=== PATIENT | female | born 1940 | race Caucasian/White ===

== ENCOUNTER 2016-10-17 15:22 | Emergency (ER) | payer OTHER ==
[~2016-10-17] VITALS: Ht 160 cm; Wt 75.0 kg
[~2016-10-17 15:22] MED LIST: ACCUPRIL40 MG PO; ADULT LOW DOSE81 M1 PO; ALDACTONE25 MG PO; ASPIRIN81 M2 PO; BACTRIM,SEPT1 TABLET PO; BUMETANIDE1 MG PO; BUMETANIDE2 MG PO; CARVEDILOL3.125 MG PO; CIPRO500 MG PO; CLINDAMYCIN HC300 MG PO; CRESTOR40 MG PO; DEXILANT60 MG PO; DIGITEK250 MC2 PO; DIGOXIN125 MCG PO; DIGOXIN250 MCG PO; DURAGESIC50 MCG TD; ELIQUIS5 MG PO; ENTRESTO 24 MG1 EACH PO; ENTRESTO 49 MG1 EACH PO; FERROUS SULFAT325 MG PO; FISH OIL CONC1 EACH PO; FOSINOPRIL SODI10 MG PO; FUROSEMIDE40 MG PO; GABAPENTIN100 MG PO; GLUCOPHAGE500 MG PO; Glucophage PO; HUMALOG100 UNIT/1 SC; HUMULIN 70100 UNIT/2 SC; K-DUR10 MEQ PO; K-DUR20 MEQ PO; K-TAB10 MEQ PO; LANTUS 10100 UNITS/ SC; LANTUS 3 M100 UNITS1 SC; LASIX40 MG PO; LISINOPRIL2.5 MG PO; LISINOPRIL5 MG PO; LO-DOSE ASPIRIN81 M1 PO; LOPRESSOR100 M1 PO; METFORMIN HCL500 MG PO; METOPROLOL SUCC50 MG PO; METOPROLOL TAR100 MG PO; MICRO-K10 ME2 PO; NOVOLIN,HU100 UNITS/ SC; NOVOLOG 10100 UNITS/ SC; NovoLOG, HumaLOG SC; POTASSIUM CHLORIDE PO; POTASSIUM CITR10 MEQ PO; PRADAXA150 MG PO; PRAVASTATIN SOD10 MG PO; PROAIR HFA8.5 GM IH; PROMETHAZINE12.5 M1 PO; PROTONIX40 MG PO; PROVENTIL,2.5 MG/3 M IH; PT UNSURE OF MEDS; Pradaxa PO; QUINAPRIL HCL40 MG PO; RANITIDINE HCL150 MG PO; SANTYL30 GM TP; SPIRONOLACTONE25 MG PO; SUCRALFATE1 GM/10 ML PO; TRAMADOL HCL50 MG PO; Vicodin,Lortab 5/500 PO; XANAX; XANAX0.25 MG PO; XANAX0.5 MG PO; ZANTAC150 MG PO; ZETIA10 MG PO; ZITHROMAX Z-PA250 MG PO; ZOFRAN4 MG PO; ZOLPIDEM TARTRAT5 MG PO
[2016-10-17 16:50] VITALS: BP 116/58
== END 2016-10-17 17:05 | disposition home or self-care (01) ==
LOC: EME 15:22
DX: S63.502A Unspecified sprain of left wrist, initial encounter (principal); M81.0 Age-related osteoporosis without current pathological fracture; Z91.040 Latex allergy status; Z88.6 Allergy status to analgesic agent; Z88.0 Allergy status to penicillin
CPT/HCPCS: 73110; 99281; 99283

== ENCOUNTER 2017-07-23 16:28 | Emergency (ER) | payer OTHER | END 2017-07-23 17:43 | disposition left against medical advice (07) | LOC: EME 16:28 | DX: R53.1 Weakness (principal); R11.0 Nausea; Z53.21 Procedure and treatment not carried out due to patient leaving prior to being seen by health care provider ==

== ENCOUNTER 2017-07-28 15:52 | Inpatient (IN) | payer OTHER ==
[~2017-07-28] VITALS: Ht 160 cm; Wt 84.1 kg
[2017-07-28 17:59] LABS: HEMATOCRIT 39.4 % (36.0-46.0); HEMOGLOBIN 12.4 G/DL (11.9-15.5); MCH 27.3 PG (29.0-34.0); MCHC 31.5 G/DL (30.0-36.0); MCV 86.6 FL (83-99); PLATELET COUNT 253 K/uL (156-360); RBC DIS.WIDTH-CV 18.2 % (11.8-14.6); RBC DIS.WIDTH-SD 56.7 % (39-53); RED BLOOD COUNT 4.55 M/uL (3.80-5.20); WHITE BLOOD COUNT 9.2 K/uL (4.1-10.2)
[2017-07-28 18:13] LABS: CHLORIDE 105 mEq/L (99-109); POTASSIUM 5.4 mEq/L (3.7-5.4); SODIUM 135 mEq/L (136-147)
[2017-07-28 18:15] LABS: GLUCOSE 200 mg/dL (70-99)
[2017-07-28 18:19] LABS: CREATININE 1.7 mg/dL (0.6-1.3); GFR ESTIMATE (CALCULATED) 31 mL/min/
[2017-07-28 18:20] LABS: UREA NITROGEN (BUN) 31 mg/dL (9-23)
[2017-07-28 18:41] LABS: APPEARANCE CLEAR ((CLEAR)); BILIRUBIN NEGATIVE; BLOOD NEGATIVE; COLOR YELLOW ((YELLOW)); GLUCOSE (STRIP) >=500; KETONES NEGATIVE; LEUKOCYTES SMALL; NITRITE NEGATIVE; PROTEIN (STRIP) 30; UROBILINOGEN 0.2 MG/DL (0.2-1.0)
[2017-07-28 18:53] LABS: BACTERIA RARE /HPF; EPITHELIAL CELLS RARE /HPF; HYALINE CASTS 0-5 /LPF; MUCUS NONE SEEN /LPF; UCUL ADDED? YES; WHITE BLOOD CELLS 15-20 /HPF (0-5)
[2017-07-28 19:06] LABS: TROP-I INTERPRETATION NEGATIVE; TROPONIN-I 0.06 ng/mL (0.0-0.30)
[2017-07-28] MEDS ORDERED: DIGOX125 MCG PO (19:53)
[2017-07-28] MEDS ORDERED: KLOR-CON M2020 MEQ PO (19:54)
[2017-07-28] MEDS ORDERED: BUMETANIDE2 MG PO (19:54)
[2017-07-28] MEDS ORDERED: JARDIANCE25 MG PO (19:56)
[2017-07-28] MEDS ORDERED: WOMEN'S 50 PLU1 EACH PO (19:56)
[2017-07-28] MEDS ORDERED: ATORVASTATIN CA40 MG PO (19:56)
[2017-07-28] MEDS ORDERED: PROMETHAZINE12.5 M1 PO (19:56)
[2017-07-28 23:36] LABS: TROP-I INTERPRETATION NEGATIVE; TROPONIN-I 0.06 ng/mL (0.0-0.30)
[2017-07-29] VITALS (7 sets, daily range): BP systolic 96–126; BP diastolic 56–74
[2017-07-29 06:54] LABS: HEMATOCRIT 40.9 % (36.0-46.0); HEMOGLOBIN 12.3 G/DL (11.9-15.5); MCH 26.6 PG (29.0-34.0); MCHC 30.1 G/DL (30.0-36.0); MCV 88.5 FL (83-99); PLATELET COUNT 222 K/uL (156-360); RBC DIS.WIDTH-CV 18.6 % (11.8-14.6); RBC DIS.WIDTH-SD 58.4 % (39-53); RED BLOOD COUNT 4.62 M/uL (3.80-5.20); WHITE BLOOD COUNT 8.8 K/uL (4.1-10.2)
[2017-07-29 07:06] LABS: TROP-I INTERPRETATION NEGATIVE; TROPONIN-I 0.07 ng/mL (0.0-0.30)
[2017-07-29 07:34] LABS: ALBUMIN 3.6 G/DL (3.2-4.8); ALKALINE PHOSPHATASE 149 IU/L (3-129); ALT (GPT) 14 IU/L (3-49); AST (GOT) 21 IU/L (2-34); CHLORIDE 104 MEQ/L (99-109); CREATININE 1.6 MG/DL (0.6-1.3); GFR ESTIMATE (CALCULATED) 33 mL/min/; GLUCOSE 78 mg/dL (70-99); POTASSIUM 4.9 MEQ/L (3.7-5.4); SODIUM 138 MEQ/L (136-147); TOTAL PROTEIN 5.9 G/DL (6.4-8.3); UREA NITROGEN (BUN) 30 mg/dL (9-23)
[2017-07-29 09:18] LABS: TROP-I INTERPRETATION NEGATIVE; TROPONIN-I 0.06 ng/mL (0.0-0.30)
[2017-07-29 13:20] LABS: HEMOGLOBIN A1c (GLYCOHEMOGLOB) 7.8 % (Below 5.7)
[2017-07-30 04:06] VITALS: BP 116/74
[2017-07-30 07:24] VITALS: BP 104/75
[2017-07-30 11:10] VITALS: BP 129/66
== END 2017-07-30 13:15 | disposition home health service (06) | DRG 292 ==
LOC: EME 15:52 → 5SOUTH 20:20 → EDOF 20:20 → ENRESERV 20:22 → 5SOUTH 22:26
PROVIDERS: Hospitalist; Internal Medicine; Physician Assistant
DX: I11.0 Hypertensive heart disease with heart failure (principal); I50.23 Acute on chronic systolic (congestive) heart failure; E87.1 Hypo-osmolality and hyponatremia; N17.9 Acute kidney failure, unspecified; J90 Pleural effusion, not elsewhere classified; E11.9 Type 2 diabetes mellitus without complications; E78.00 Pure hypercholesterolemia, unspecified; E78.5 Hyperlipidemia, unspecified; I25.10 Atherosclerotic heart disease of native coronary artery without angina pectoris; I48.2 Chronic atrial fibrillation; I25.5 Ischemic cardiomyopathy; K21.9 Gastro-esophageal reflux disease without esophagitis; J43.9 Emphysema, unspecified; I34.0 Nonrheumatic mitral (valve) insufficiency; I27.20 Pulmonary hypertension, unspecified; Z66 Do not resuscitate; I42.9 Cardiomyopathy, unspecified; E66.9 Obesity, unspecified; Z95.810 Presence of automatic (implantable) cardiac defibrillator; Z79.01 Long term (current) use of anticoagulants; Z79.4 Long term (current) use of insulin; Z95.1 Presence of aortocoronary bypass graft; Z82.49 Family history of ischemic heart disease and other diseases of the circulatory system; Z87.891 Personal history of nicotine dependence; I25.2 Old myocardial infarction; Z88.0 Allergy status to penicillin; Z88.5 Allergy status to narcotic agent; Z91.040 Latex allergy status; Z68.32 Body mass index [BMI] 32.0-32.9, adult
CPT/HCPCS: 71045; 71046; 80048; 80053; 81003; 82948; 83036; 83880; 84484; 85027; 87086; 93005; 93306; 99202; 99281; 99284; J1815; J1940

== ENCOUNTER 2017-08-01 15:01 | Inpatient (IN) | payer OTHER ==
[~2017-08-01] VITALS: Ht 160 cm; Wt 83.0 kg
[~2017-08-01 15:01] MED LIST changes: +ATORVASTATIN CA40 MG PO; +DIGOX125 MCG PO; +JARDIANCE25 MG PO; +KLOR-CON M2020 MEQ PO; +WOMEN'S 50 PLU1 EACH PO
[2017-08-01 15:53] LABS: HEMATOCRIT 39.1 % (36.0-46.0); HEMOGLOBIN 12.3 G/DL (11.9-15.5); MCH 27.3 PG (29.0-34.0); MCHC 31.5 G/DL (30.0-36.0); MCV 86.9 FL (83-99); PLATELET COUNT 240 K/uL (156-360); RBC DIS.WIDTH-CV 18.2 % (11.8-14.6); RBC DIS.WIDTH-SD 56.6 % (39-53); WHITE BLOOD COUNT 6.1 K/uL (4.1-10.2)
[2017-08-01 16:00] LABS: INTER. NORMALIZED RATIO 2.9
[2017-08-01 16:02] LABS: ALBUMIN 3.7 g/dL (3.2-4.8); CHLORIDE 99 mEq/L (99-109)
[2017-08-01 16:03] LABS: SODIUM 131 mEq/L (136-147)
[2017-08-01 16:04] LABS: GLUCOSE 263 mg/dL (70-99); TOTAL PROTEIN 6.2 g/dL (6.4-8.3)
[2017-08-01 16:06] LABS: TOTAL BILIRUBIN 1.4 mg/dL (0.0-1.0)
[2017-08-01 16:08] LABS: ALKALINE PHOSPHATASE 159 IU/L (3-129); GFR ESTIMATE (CALCULATED) 19 mL/min/
[2017-08-01 16:09] LABS: AST (GOT) 35 IU/L (2-34); UREA NITROGEN (BUN) 44 mg/dL (9-23)
[2017-08-01 16:11] LABS: ALT (GPT) 19 IU/L (3-49)
[2017-08-01 16:14] LABS: CREATININE 2.6 mg/dL (0.6-1.3); POTASSIUM 6.7 mEq/L (3.7-5.4)
[2017-08-01] MEDS ORDERED: TYLENOL EXTRA500 MG PO (17:15)
[2017-08-01] MEDS ORDERED: ROBITUSSIN DM118 ML PO (17:16)
[2017-08-01 20:30] LABS: DIGOXIN 2.2 ng/mL (0.8-2.0)
[2017-08-01 22:03] LABS: HEMATOCRIT 37.8 % (36.0-46.0); MCV 85.9 FL (83-99)
[2017-08-01 22:13] LABS: CHLORIDE 105 mEq/L (99-109); POTASSIUM 5.8 mEq/L (3.7-5.4); SODIUM 137 mEq/L (136-147)
[2017-08-01 22:19] LABS: CREATININE 2.4 mg/dL (0.6-1.3); GFR ESTIMATE (CALCULATED) 21 mL/min/
[2017-08-01 22:20] VITALS: BP 88/54
[2017-08-01 22:20] LABS: UREA NITROGEN (BUN) 47 mg/dL (9-23)
[2017-08-01 22:26] VITALS: BP 91/65
[2017-08-01 22:27] LABS: GLUCOSE 91 mg/dL (70-99)
[2017-08-02 00:25] VITALS: BP 110/65
[2017-08-02 03:05] LABS: HEMOGLOBIN 12.3 G/DL (11.9-15.5); MCV 86.1 FL (83-99)
[2017-08-02 04:00] VITALS: BP 110/62
[2017-08-02 08:09] VITALS: BP 111/56
[2017-08-02 09:07] LABS: HEMATOCRIT 39.9 % (36.0-46.0); HEMOGLOBIN 12.5 G/DL (11.9-15.5); MCH 27.4 PG (29.0-34.0); MCHC 31.3 G/DL (30.0-36.0); MCV 87.5 FL (83-99); PLATELET COUNT 264 K/uL (156-360); RBC DIS.WIDTH-CV 18.6 % (11.8-14.6); RED BLOOD COUNT 4.56 M/uL (3.80-5.20); WHITE BLOOD COUNT 6.9 K/uL (4.1-10.2)
[2017-08-02 09:50] LABS: DIGOXIN 1.5 ng/mL (0.8-2.0)
[2017-08-02 10:44] LABS: CHLORIDE 104 MEQ/L (99-109); CREATININE 2.3 MG/DL (0.6-1.3); GFR ESTIMATE (CALCULATED) 22 mL/min/; GLUCOSE 94 mg/dL (70-99); POTASSIUM 5.6 MEQ/L (3.7-5.4); SODIUM 138 MEQ/L (136-147); UREA NITROGEN (BUN) 41 mg/dL (9-23)
[2017-08-02 12:01] VITALS: BP 116/60
[2017-08-02 15:33] LABS: HEMATOCRIT 40.1 % (36.0-46.0); HEMOGLOBIN 12.1 G/DL (11.9-15.5)
[2017-08-02 15:38] LABS: C DIFF TOXIN NEGATIVE (NEGATIVE)
[2017-08-02 16:19] VITALS: BP 109/73
[2017-08-02 19:56] VITALS: BP 106/57
[2017-08-03] VITALS (7 sets, daily range): BP systolic 96–137; BP diastolic 58–84
[2017-08-03 06:28] LABS: HEMATOCRIT 40.4 % (36.0-46.0); HEMOGLOBIN 12.3 G/DL (11.9-15.5); MCHC 30.4 G/DL (30.0-36.0); MCV 88.6 FL (83-99); PLATELET COUNT 245 K/uL (156-360); RBC DIS.WIDTH-CV 18.6 % (11.8-14.6); RBC DIS.WIDTH-SD 58.7 % (39-53); RED BLOOD COUNT 4.56 M/uL (3.80-5.20); WHITE BLOOD COUNT 6.2 K/uL (4.1-10.2)
[2017-08-03 06:54] LABS: CHLORIDE 101 MEQ/L (99-109); CREATININE 2.2 MG/DL (0.6-1.3); GFR ESTIMATE (CALCULATED) 23 mL/min/; GLUCOSE 88 mg/dL (70-99); POTASSIUM 4.7 MEQ/L (3.7-5.4); SODIUM 138 MEQ/L (136-147); UREA NITROGEN (BUN) 41 mg/dL (9-23)
[2017-08-03 07:14] LABS: INTER. NORMALIZED RATIO 1.5
[2017-08-04 04:14] VITALS: BP 135/82
[2017-08-04 06:55] LABS: BASOPHIL (%) 0.7 % (0-1); BASOPHIL COUNT 0.1 K/uL (0-0.1); EOSINOPHIL (%) 0.9 % (0-5); EOSINOPHIL COUNT 0.1 K/uL (0-0.3); HEMATOCRIT 39.6 % (36.0-46.0); HEMOGLOBIN 12.3 G/DL (11.9-15.5); IMMATURE GRANULOCYTE (%) 0.3 % (0.0-0.7); LYMPHOCYTE (%) 22.7 % (15-42); LYMPHOCYTE COUNT 1.5 K/uL (1.0-2.8); MCH 27.1 PG (29.0-34.0); MCHC 31.1 G/DL (30.0-36.0); MCV 87.2 FL (83-99); MONOCYTE (%) 10.1 % (3-12); MONOCYTE COUNT 0.7 K/uL (0-0.8); NEUTROPHIL (%) 65.3 % (45-76); NEUTROPHIL COUNT 4.4 K/uL (1.8-6.4); PLATELET COUNT 254 K/uL (156-360); RBC DIS.WIDTH-CV 18.6 % (11.8-14.6); RBC DIS.WIDTH-SD 57.6 % (39-53); RED BLOOD COUNT 4.54 M/uL (3.80-5.20); WHITE BLOOD COUNT 6.7 K/uL (4.1-10.2)
[2017-08-04 07:57] VITALS: BP 117/74
[2017-08-04 09:53] LABS: A/G RATIO 1.6 (1.1-1.8); ALBUMIN 3.5 G/DL (3.4-5.0); CHLORIDE 101 MEQ/L (99-109); CREATININE 2.2 MG/DL (0.6-1.3); FERRITIN 70 NG/ML (10-291); GFR ESTIMATE (CALCULATED) 23 mL/min/; GLOBULINS 2.2 G/DL (2.3-3.5); IRON 48 MCG/DL (35-150); POTASSIUM 4.8 MEQ/L (3.7-5.4); SODIUM 134 MEQ/L (136-147); TOTAL PROTEIN 5.7 G/DL (6.4-8.2); TRANSFERRIN (TIBC) 224.2 mg/dL (215-380); TRANSFERRIN SATUR. 21 % (20-55); UREA NITROGEN (BUN) 43 mg/dL (9-23)
[2017-08-04 09:55] LABS: GLUCOSE 185 mg/dL (70-99)
[2017-08-04 10:19] LABS: ANTI-HEPATITIS B CORE (TOTAL) Nonreactive
[2017-08-04 10:20] LABS: HEPATITIS C ANTIBODY Nonreactive
[2017-08-04 11:12] LABS: ALBUMIN 3.26 G/DL (3.6-4.9); ALPHA-1 GLOBULIN 0.33 G/DL (0.15-0.40); ALPHA-2 GLOBULIN 0.62 G/DL (0.45-0.85); BETA-GLOBULIN 0.56 G/DL (0.65-1.15); GAMMA-GLOBULIN 0.93 G/DL (0.60-1.35)
[2017-08-04 11:49] VITALS: BP 110/54
[2017-08-04] MEDS ORDERED: BUMEX1 MG PO (13:47)
[2017-08-04] MEDS ORDERED: METRONIDAZOLE500 MG PO ×2 (13:47→13:54)
== END 2017-08-04 15:30 | disposition home health service (06) | DRG 377 ==
LOC: EME 15:01 → EDOF 18:49 → 5SOUTH 18:49 → ENRESERV 19:01 → 5SOUTH 21:30 → ENPENDDIS 08-04 14:09 → 5SOUTH 08-04 15:30
PROVIDERS: Emergency Medicine; Hospitalist; Internal Medicine; Internal Medicine Nephrology; Specialist
DX: K92.1 Melena (principal); R19.7 Diarrhea, unspecified; N17.9 Acute kidney failure, unspecified; T50.2X5A Adverse effect of carbonic-anhydrase inhibitors, benzothiadiazides and other diuretics, initial encounter; T38.3X5A Adverse effect of insulin and oral hypoglycemic [antidiabetic] drugs, initial encounter; E87.5 Hyperkalemia; I95.9 Hypotension, unspecified; E87.1 Hypo-osmolality and hyponatremia; I13.0 Hypertensive heart and chronic kidney disease with heart failure and stage 1 through stage 4 chronic kidney disease, or unspecified chronic kidney disease; I50.43 Acute on chronic combined systolic (congestive) and diastolic (congestive) heart failure; E11.22 Type 2 diabetes mellitus with diabetic chronic kidney disease; N18.3 Chronic kidney disease, stage 3 (moderate); E78.5 Hyperlipidemia, unspecified; I25.10 Atherosclerotic heart disease of native coronary artery without angina pectoris; I25.5 Ischemic cardiomyopathy; I34.0 Nonrheumatic mitral (valve) insufficiency; I48.2 Chronic atrial fibrillation; K21.9 Gastro-esophageal reflux disease without esophagitis; J44.9 Chronic obstructive pulmonary disease, unspecified; E66.01 Morbid (severe) obesity due to excess calories; N83.202 Unspecified ovarian cyst, left side; I72.8 Aneurysm of other specified arteries; Z66 Do not resuscitate; Z68.32 Body mass index [BMI] 32.0-32.9, adult; Z87.891 Personal history of nicotine dependence; Z95.1 Presence of aortocoronary bypass graft; Z95.810 Presence of automatic (implantable) cardiac defibrillator; Z79.4 Long term (current) use of insulin; Z79.01 Long term (current) use of anticoagulants; Z88.0 Allergy status to penicillin; Z88.5 Allergy status to narcotic agent; Z91.040 Latex allergy status
CPT/HCPCS: 70450; 74176; 80048; 80048 91; 80053; 80162; 82390; 82728; 82948; 83540; 84132 91; 84165; 84466; 85014; 85018; 85025; 85027; 85610; 85730; 86704; 86708 90; 86803; 86850; 86900; 86901; 87177; 87493; 87506; 93005; 99202; 99281; 99285; C9113; J1815; J7030; J7040

== ENCOUNTER 2017-08-07 15:13 | Inpatient (IN) | payer OTHER ==
[~2017-08-07] VITALS: Ht 160 cm; Wt 88.9 kg
[~2017-08-07 15:13] MED LIST changes: +BUMEX1 MG PO; +METRONIDAZOLE500 MG PO; +ROBITUSSIN DM118 ML PO; +TYLENOL EXTRA500 MG PO
[2017-08-07 15:54] LABS: HEMATOCRIT 43.1 % (36.0-46.0); HEMOGLOBIN 13.5 G/DL (11.9-15.5); MCH 27.2 PG (29.0-34.0); MCHC 31.3 G/DL (30.0-36.0); MCV 86.7 FL (83-99); RBC DIS.WIDTH-SD 57.6 % (39-53); RED BLOOD COUNT 4.97 M/uL (3.80-5.20)
[2017-08-07 15:58] LABS: POTASSIUM ND MEQ/L (3.7-5.4)
[2017-08-07 16:03] LABS: CHLORIDE 99 MEQ/L (99-109); SODIUM 129 MEQ/L (136-147)
[2017-08-07 16:04] LABS: GLUCOSE 166 mg/dL (70-99)
[2017-08-07 16:05] LABS: TOTAL PROTEIN 7.4 g/dL (6.4-8.3)
[2017-08-07 16:08] LABS: CREATININE 2.4 mg/dL (0.6-1.3); GFR ESTIMATE (CALCULATED) 21 mL/min/
[2017-08-07 16:09] LABS: ALKALINE PHOSPHATASE 243 IU/L (3-129); TOTAL BILIRUBIN 1.1 mg/dL (0.0-1.0); UREA NITROGEN (BUN) 59 mg/dL (9-23)
[2017-08-07 16:12] LABS: ALT (GPT) ND IU/L (3-49); AST (GOT) ND IU/L (2-34)
[2017-08-07 16:16] LABS: TROP-I INTERPRETATION POSITIVE
[2017-08-07 16:17] LABS: TROPONIN-I 0.75 ng/mL (0.0-0.30)
[2017-08-07 16:38] LABS: POTASSIUM 5.7 mEq/L (3.7-5.4)
[2017-08-07 16:47] LABS: ALT (GPT) 54 IU/L (3-49); AST (GOT) 102 IU/L (2-34)
[2017-08-07 16:56] LABS: PLAT.SUFFICIENCY ADEQUATE; PLATELET COUNT 204 K/uL (156-360)
[2017-08-07] MEDS ORDERED: BUMEX2 MG PO (17:32)
[2017-08-07 20:51] LABS: TROP-I INTERPRETATION POSITIVE
[2017-08-07 20:53] LABS: TROPONIN-I 0.72 ng/mL (0.0-0.30)
[2017-08-07 20:57] VITALS: BP 118/73
[2017-08-07 23:18] VITALS: BP 150/80
[2017-08-08 02:29] LABS: TROP-I INTERPRETATION POSITIVE
[2017-08-08 03:38] VITALS: BP 101/58
[2017-08-08 09:05] VITALS: BP 127/67
[2017-08-08 09:32] LABS: HEMATOCRIT 40.4 % (36.0-46.0); HEMOGLOBIN 12.6 G/DL (11.9-15.5); MCH 27.3 PG (29.0-34.0); MCHC 31.2 G/DL (30.0-36.0); MCV 87.4 FL (83-99); PLATELET COUNT 183 K/uL (156-360); RBC DIS.WIDTH-CV 18.6 % (11.8-14.6); RBC DIS.WIDTH-SD 58.4 % (39-53); RED BLOOD COUNT 4.62 M/uL (3.80-5.20); WHITE BLOOD COUNT 5.1 K/uL (4.1-10.2)
[2017-08-08 10:01] LABS: CHLORIDE 99 MEQ/L (99-109); CREATININE 2.2 MG/DL (0.6-1.3); GFR ESTIMATE (CALCULATED) 23 mL/min/; GLUCOSE 124 mg/dL (70-99); POTASSIUM 5.4 MEQ/L (3.7-5.4); SODIUM 131 MEQ/L (136-147); UREA NITROGEN (BUN) 59 mg/dL (9-23)
[2017-08-08 10:16] LABS: TROP-I INTERPRETATION POSITIVE; TROPONIN-I 0.99 ng/mL (0.0-0.30)
[2017-08-08 11:50] VITALS: BP 149/88
[2017-08-08 15:58] VITALS: BP 100/59
[2017-08-08 18:23] LABS: HEMATOCRIT 43.2 % (36.0-46.0); HEMOGLOBIN 13.4 G/DL (11.9-15.5); MCV 87.4 FL (83-99)
[2017-08-08 19:31] VITALS: BP 106/58
[2017-08-08 22:40] VITALS: BP 106/58
[2017-08-09 04:14] VITALS: BP 111/65
[2017-08-09 05:44] LABS: BASOPHIL (%) 0.7 % (0-1); EOSINOPHIL (%) 0.2 % (0-5); HEMATOCRIT 39.6 % (36.0-46.0); HEMOGLOBIN 12.1 G/DL (11.9-15.5); IMMATURE GRANULOCYTE (%) 0.7 % (0.0-0.7); LYMPHOCYTE (%) 18.8 % (15-42); LYMPHOCYTE COUNT 0.9 K/uL (1.0-2.8); MCH 26.8 PG (29.0-34.0); MCHC 30.6 G/DL (30.0-36.0); MCV 87.8 FL (83-99); MONOCYTE (%) 19.9 % (3-12); MONOCYTE COUNT 0.9 K/uL (0-0.8); NEUTROPHIL (%) 59.7 % (45-76); NEUTROPHIL COUNT 2.7 K/uL (1.8-6.4); PLATELET COUNT 178 K/uL (156-360); RBC DIS.WIDTH-CV 18.6 % (11.8-14.6); RBC DIS.WIDTH-SD 58.7 % (39-53); RED BLOOD COUNT 4.51 M/uL (3.80-5.20); WHITE BLOOD COUNT 4.5 K/uL (4.1-10.2)
[2017-08-09 06:09] LABS: CHLORIDE 100 MEQ/L (99-109); CREATININE 2.2 MG/DL (0.6-1.3); GFR ESTIMATE (CALCULATED) 23 mL/min/; POTASSIUM 5.4 MEQ/L (3.7-5.4); SODIUM 131 MEQ/L (136-147); UREA NITROGEN (BUN) 61 mg/dL (9-23)
[2017-08-09 06:12] LABS: GLUCOSE 52 mg/dL (70-99); TROP-I INTERPRETATION POSITIVE; TROPONIN-I 3.42 ng/mL (0.0-0.30)
[2017-08-09 07:00] VITALS: BP 88/55
[2017-08-09 09:53] LABS: STOOL OCCULT BLD 1ST SPECIMEN POSITIVE
[2017-08-09 12:00] VITALS: BP 114/59
[2017-08-09 20:04] VITALS: BP 112/63
[2017-08-10 08:36] VITALS: BP 120/68
== END 2017-08-10 18:25 ==
LOC: EME 15:13 → EDOF 17:20 → 4EAST 17:20 → ENRESERV 17:22 → 4EAST 20:48 → ENRESERV 08-09 11:48 → EDOF 08-09 19:50 → 5EAST 08-09 19:50 → ENRESERV 08-09 20:09 → 5EAST 08-09 21:07
PROVIDERS: Emergency Medicine; Hospitalist; Internal Medicine Cardiovascular Disease; Internal Medicine Nephrology
DX: I13.0 Hypertensive heart and chronic kidney disease with heart failure and stage 1 through stage 4 chronic kidney disease, or unspecified chronic kidney disease (principal); I50.23 Acute on chronic systolic (congestive) heart failure; I21.4 Non-ST elevation (NSTEMI) myocardial infarction; J96.01 Acute respiratory failure with hypoxia; E87.1 Hypo-osmolality and hyponatremia; E87.2 Acidosis; J98.11 Atelectasis; Z51.5 Encounter for palliative care; Z66 Do not resuscitate; K92.2 Gastrointestinal hemorrhage, unspecified; N17.9 Acute kidney failure, unspecified; F05 Delirium due to known physiological condition; I42.0 Dilated cardiomyopathy; E11.22 Type 2 diabetes mellitus with diabetic chronic kidney disease; E78.5 Hyperlipidemia, unspecified; E87.5 Hyperkalemia; I25.10 Atherosclerotic heart disease of native coronary artery without angina pectoris; I25.5 Ischemic cardiomyopathy; I48.2 Chronic atrial fibrillation; N18.3 Chronic kidney disease, stage 3 (moderate); K21.9 Gastro-esophageal reflux disease without esophagitis; I50.82 Biventricular heart failure; I95.9 Hypotension, unspecified; E66.9 Obesity, unspecified; I34.0 Nonrheumatic mitral (valve) insufficiency; I36.1 Nonrheumatic tricuspid (valve) insufficiency; I35.0 Nonrheumatic aortic (valve) stenosis; Z79.01 Long term (current) use of anticoagulants; Z87.891 Personal history of nicotine dependence; Z95.1 Presence of aortocoronary bypass graft; Z95.810 Presence of automatic (implantable) cardiac defibrillator; Z68.34 Body mass index [BMI] 34.0-34.9, adult; Z88.0 Allergy status to penicillin; Z88.5 Allergy status to narcotic agent; Z91.040 Latex allergy status; Z79.4 Long term (current) use of insulin; Z80.1 Family history of malignant neoplasm of trachea, bronchus and lung; Z82.49 Family history of ischemic heart disease and other diseases of the circulatory system
CPT/HCPCS: 71045; 76770; 80048; 80053; 81003; 82272; 82948; 83880; 84100; 84132 91; 84450; 84460; 84484; 84999; 85014; 85018; 85025; 85027; 93005; 94799; 99281; 99285; J1815; J1940; J2060; J2270